=== PATIENT | female | born 1960 | race Caucasian/White ===

== ENCOUNTER 2018-01-02 11:42 | Emergency (ER) | payer SELFPAY ==
[2018-01-02 12:01] VITALS: BP 172/106
--- NOTE | 2018-01-02 12:04 | UC ---
Complaint Female HPI - HPI Summary HPI Summary: 57 yo female presents with UTI symptoms. She tells me that 3 days ago she developed burning with urination. Yesterday developed frequency. This morning woke up with left flank pain and mild nauseous. She has had UTIs in the past and this feels similar, but has never had flank pain before. She has a family hx of kidney stones, but has never had one herself. Denies fever, chills, abdominal pain, vaginal discharge, vomiting, or hematuria. - History Of Current Complaint Chief Complaint: UCGU Stated Complaint: PAIN WITH URINATION Time Seen by Provider: 01/02/18 12:04 Hx Obtained From: Patient Onset/Duration: Gradual Onset Severity Initially: Moderate Severity Currently: Severe Pain Intensity: 8 Pain Scale Used: 0-10 Numeric - Allergies/Home Medications Allergies/Adverse Reactions: Allergies Allergy/AdvReac Type Severity Reaction Status Date / Time metronidazole [From Flagyl] Allergy Nausea And Verified 01/02/18 12:01 Vomiting Penicillins Allergy GI Upset Verified 01/02/18 12:01 Home Medications: Home Medications Ibuprofen [Advil] 400 mg PO QPM 01/02/18 [History Confirmed 01/02/18] Metformin HCl 500 mg PO QPM 01/02/18 [History Confirmed 01/02/18] PMH/Surg Hx/FS Hx/Imm Hx Endocrine History: Diabetes - Surgical History Surgical History: Yes Surgery Procedure, Year, and Place: T&A. tubes in ears. appendectomy. left knee repair. hysterectomy. rectocele cystocele repair. ovary removal. umbilical hernia repair. ectopic - Family History Known Family History: Positive: None - Social History Occupation: Employed Full-time Lives: With Family Alcohol Use: Occasionally Substance Use Type: None Smoking Status (MU): Never Smoked Tobacco Review of Systems Constitutional: Negative Skin: Negative Respiratory: Negative Cardiovascular: Negative Gastrointestinal: Nausea Genitourinary: Dysuria, Frequency, Urgency Neurovascular: Negative Neurological: Negative Psychological: Negative All Other Systems Reviewed And Are Negative: Yes Physical Exam - Summary Physical Exam Summary: GENERAL: NAD. Obese SKIN: No rashes, sores, lesions, or open wounds. NECK: Supple. Nontender. No lymphadenopathy. CHEST: CTAB. No r/r/w. No accessory muscle use. Breathing comfortably and in no distress. CV: RRR. Without m/r/g. Pulses intact. Cap refill <2seconds ABDOMEN: Soft. NTTP. No distention or guarding. Mild left CVA tenderness. Bowel sounds present NEURO: Alert. PSYCH: Age appropriate behavior. Triage Information Reviewed: Yes Vital Signs: Initial Vital Signs Temp 99 F 01/02/18 11:53 Pulse 101 01/02/18 11:53 Resp 18 01/02/18 11:53 BP 172/106 01/02/18 11:53 Pulse Ox 100 01/02/18 11:53 Laboratory Tests 01/02/18 11:56 POC Urine Color Yellow POC Urine Clarity Cloudy POC Urine pH 5.0 POC Ur Specif [place] <= 1.005 L POC Urine Protein 1+ A POC Ur Glucose (UA) Negative POC Urine Ketones Negative POC Urine Blood 3+ A POC Urine Nitrite Positive A POC Urine Bilirubin Negative POC Urine Urobilinogen 0.2 POC U Leukocyte Esteras 2+ A Vital Signs Reviewed: Yes Complaint Female Dx - Course Course Of Treatment: Suspect UTI given her gradual onset of symptoms. Low suspicion for kidney stone at this time. Discussed this with the pt and she says that she does not have insurance at this time and would prefer not to have a CT scan given low suspicion for stone. Will treat with cipro for early pyelonephritis and have her f/u if symptoms worsen or persist. - Differential Dx/Diagnosis Provider Diagnoses: UTI Discharge - Sign-Out/Discharge Documenting (check all that apply): Patient Departure All imaging exams completed and their final reports reviewed: No Studies - Discharge Plan Condition: Stable Disposition: HOME Prescriptions: Ciprofloxacin TAB* [Cipro 500 MG TAB*] 500 mg PO BID #14 tab Phenazopyridine 200 mg (NF) [Pyridium 200 MG tab *] 200 mg PO TID PRN #6 tab PRN Reason: Pain Patient Education Materials: Urinary Tract Infection in Women (DC) Referrals: No Primary Care Phys,NOPCP [Primary Care Provider] - Additional Instructions: If you develop a fever, shortness of breath, chest pain, new or worsening symptoms - please call your PCP or go to the ED. Your blood pressure was high at todays visit. Please see your primary provider within 4 weeks for recheck and re-evaluation. - Billing Disposition and Condition Condition: STABLE Disposition: Home
== END 2018-01-02 12:20 | disposition home or self-care (01) ==
LOC: UCEAST 11:42
DX: N39.0 Urinary tract infection, site not specified (principal); Z87.440 Personal history of urinary (tract) infections; Z88.1 Allergy status to other antibiotic agents; Z88.0 Allergy status to penicillin; E11.9 Type 2 diabetes mellitus without complications; Z79.84 Long term (current) use of oral hypoglycemic drugs
CPT/HCPCS: 81003; 87077; 87086; 87186; 99212; G0463